=== PATIENT | female | born 1950 | race Caucasian/White ===

== ENCOUNTER 2019-02-22 17:11 | Inpatient (IN) | payer MEDICARE, OTHER ==
[2019-02-22] MEDS ORDERED: Acetaminophen 500 MG TAB ONE (17:44)
[2019-02-22 17:52] LABS: #Eosinphils 0.1 thou/uL (0.0-0.7); #Lymphocytes 0.7 thou/uL (1.20-3.40); #Monocytes 0.9 thou/uL (0.11-0.59); #Neutrophils 7.3 thou/uL (1.40-6.50); %Basophils 0.2 % (0.0-1.0); %Eosinophils 0.6 % (0.0-10.0); %Lymphocytes 7.8 % (21.0-51.0); %Monocytes 10.4 % (0.0-10.0); Hemoglobin 11.4 g/dL (12.0-16.0); Mean Corpuscular HGB CONC 31.9 g/dL (32.0-36.0); Mean Corpuscular Hemoglobin 25.8 pg (27.0-31.0); Mean Corpuscular Volume 80.7 fL (78.0-98.0); Mean Platelet Volume 7.5 fL (7.4-10.4); Platelet Count 249 thou/uL (130-400); RBC Distribution Width 17.5 % (11.5-14.5); Red Blood Cell (RBC) Count 4.43 mill/uL (4.20-5.40)
[2019-02-22 18:14] LABS: ALT (SGPT) 36 U/L (8-55); AST (SGOT) 143 U/L (5-34); Albumin 4.9 g/dL (3.4-4.8); Alkaline Phosphatase 77 U/L (40-110); Anion Gap 15 mmol/L (10-20); BUN (Urea Nitrogen) 6 mg/dL (9.8-20.1); CK (CPK) 1054 U/L (29-168); Calc. Creatinine Clearance 0 mL/min (70-130); Calcium 9.8 mg/dL (7.8-10.44); Carbon Dioxide 26 mmol/L (23-31); Chloride 106 mmol/L (98-107); Estimated GFR-MDRD 76; Globulin 2.4 g/dL (2.4-3.5); Glucose 137 mg/dL (80-115); Potassium 4.3 mmol/L (3.5-5.1); Protein, Total 7.3 g/dL (6.0-8.3); Sodium 143 mmol/L (136-145)
[2019-02-22 18:45] LABS: CKMB 70.5 ng/mL (0-6.6)
[2019-02-22] MEDS ORDERED: Enoxaparin Sodium 80 MG/0.8 ML SYRINGE ONE (19:24)
[2019-02-22] MEDS ORDERED: Nitroglycerin 2% Ointment 1 INCH/1 GM Packet ONE (19:24)
[2019-02-22] MEDS ORDERED: Aspirin 325 MG TAB ONE (19:24)
--- NOTE | 2019-02-22 19:33 | RAD ---
PORTABLE CHEST: Date: 02-22-19 Provided Clinical History: Fever. FINDINGS: Cardiac silhouette appears enlarged, which may be at least partially on the basis of portable techniq ue. Vascular calcification involves the aortic arch. No focal consolidation, pleural fluid, or pneumo thorax apparent. Retrocardiac density in the region of the diaphragmatic hiatus is presumably hiatal hernia. IMPRESSION: No evidence for an acute cardiopulmonary process. POS: KEIRA
[2019-02-22] MEDS ORDERED: Ibuprofen 200 MG TAB ONE (21:24)
[2019-02-22] MEDS ORDERED: Cefepime 2 GM VIAL ONE (22:04)
[2019-02-22 22:34] LABS: Troponin I 13.405 ng/mL (< 0.028)
[2019-02-22 22:39] LABS: Bilirubin Negative (Negative); Blood, Urine Negative (Negative); Clarity Clear (Clear); Glucose, Urine (Dipstick) Normal (Negative); Leukocyte Negative Leu/uL (Negative); Nitrite Negative (Negative); Protein, Urine (Dipstick) Negative (Neg-Trace); Urobilinogen Normal mg/dL (Less than 2)
[2019-02-22] MEDS ORDERED: Acetaminophen 325 MG TAB PO PRN (23:14)
[2019-02-22] MEDS ORDERED: Ondansetron ODT 4 MG TAB SL PRN (23:14)
[2019-02-22] MEDS ORDERED: Ondansetron PF 4 MG/2 ML Vial IVP PRN (23:14)
[2019-02-22 23:22] VITALS: BMI 27.3
[2019-02-23 01:31] LABS: Critical Call Chem Troponin I RESULT DECREASING; Troponin I 12.707 ng/mL (< 0.028)
[2019-02-23] MEDS ORDERED: Bisacodyl 5 MG TAB PO PRN (03:16)
[2019-02-23] MEDS ORDERED: Ondansetron PF 4 MG/2 ML Vial IVP PRN (03:16)
[2019-02-23] MEDS ORDERED: Acetaminophen 325 MG TAB PO PRN (03:16)
[2019-02-23] MEDS ORDERED: ERGOCALCIFEROL 5000 UNIT PO SCH (03:30)
--- NOTE | 2019-02-23 04:01 | HP ---
PRIMARY CARE PROVIDER: Dr. Annita Collier in [place], [place]. CHIEF COMPLAINT: Body aches. HISTORY OF PRESENT ILLNESS: Ms. Mccarthy is a pleasant 68-year-old lady, who was seen at [facility] on February 23, 2019. 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 About 9 months ago, the patient's mother moved from [place] to [facility]. The patient's sister lives in this area. Over the last 3 months, the patient's mother has been under hospice care. The patient and her usually drive here and stay Friday, Friday, and Friday in this area and drives back to [place]. They report being under lot of stress. Over the last 4 to 5 days, the patient has had body aches. She describes that the body aches initially started around the gum line, then neck, then both arms, all the way to fingertips. She also reports pain across shoulder blades. She also reports cough that is occasionally productive of whitish sputum. She reports having fever yesterday, but not until yesterday. She denies any urinary symptoms. She reports vomiting 4 times yesterday. She reports occasional shortness of breath. She denies any specific chest pain, but does report generalized body aches. In the emergency room, she was found to be febrile. She was also found to have elevated troponin-I. She has been referred to Hospitalist Service for admission. REVIEW OF SYSTEMS: All systems were reviewed and found to be negative except for the pertinent positives mentioned above. PAST MEDICAL HISTORY: Gastroesophageal reflux disease, rheumatoid arthritis, psoriatic arthritis, dyslipidemia, hypertension. PAST SURGICAL HISTORY: Cholecystectomy, section, and hysterectomy. PSYCHIATRIC HISTORY: Depression. SOCIAL HISTORY: The patient drinks a small amount of wine on a daily basis. She also has an Micronesian whiskey in the evening. She denies any tobacco use or recreational drug use. FAMILY HISTORY: Significant for several members with coronary artery disease. ALLERGIES: IODINE AND IODINE CONTAINING PRODUCTS. CURRENT MEDICATIONS: Atenolol 12.5 mg daily, clonazepam 0.5 mg 3 times a day, vitamin D2 at 5000 units daily, methotrexate 15 mg every week, omeprazole 40 mg daily, quetiapine 50 mg at bedtime, Zoloft 100 mg daily, Zocor 40 mg at bedtime. CODE STATUS: I discussed her code status. She is full code. PHYSICAL EXAMINATION: GENERAL: On examination, Ms. Mccarthy is awake and alert, not in acute distress. VITAL SIGNS: Blood pressure is 113/63, pulse 96, respiratory rate 18, and oxygen saturation 94% on room air. She is afebrile. In the emergency room, she had pulse as high as 105. T-max in the emergency room was 102.1. EYES: No scleral icterus, no conjunctival pallor. ENT: Moist mucosal membranes. No oropharyngeal erythema or exudates. NECK: Supple, nontender, trachea is midline. RESPIRATORY: Accessory muscles of breathing are not active. Chest wall movements are symmetric bilaterally. LUNGS: Clear to auscultation without wheeze, rhonchi, or crepitations. CARDIOVASCULAR: S1 and S2 are heard, regular. Peripheral pulses palpable. No carotid bruit. No pericardial rub. ABDOMEN: Soft, nontender, bowel sounds heard. NEUROLOGIC: Cranial nerves 2 through 12 intact, deep tendon reflexes 2+. MUSCULOSKELETAL: Power is 5/5 in all 4 extremities. SKIN: No rashes or subcutaneous nodules. LYMPHATIC: No cervical lymphadenopathy. PSYCHIATRIC: Normal mood, normal affect, the patient is oriented to person, place, and time. LABORATORY DATA: Ms. Mccarthy's labs and investigations were reviewed. I reviewed her electrocardiogram, which shows sinus tachycardia, no ST changes to suggest an acute coronary syndrome. She does have low-voltage QRS complexes. I also reviewed her chest x-ray, which does not show any pulmonary infiltrates. She has normal white count, normocytic anemia with hemoglobin 11.4, normal platelet count, D-dimer less than 0.27, normal electrolytes, normal creatinine, elevated AST of 143, normal ALT, normal alkaline phosphatase, normal total bilirubin, elevated CK level of 1054 and elevated troponin I of 12.707. Urinalysis is negative for nitrite and leukocyte esterase. ASSESSMENT AND PLAN: Ms. Mccarthy is a pleasant 68-year-old lady, who was seen at [facility] on February 23, 2019. Her problem list includes: 1. Sepsis: Ms. Mccarthy is presenting with sepsis, etiology unclear. Could be secondary to viral infections. The patient has been started on cefepime to cover bacterial infections, which I will continue for now. We will follow blood cultures. 2. Elevated troponin: Etiology is unclear. Differential diagnosis include [id number] myocardial infarction, type 1 or type 2 as well as cardiomyopathy secondary to viral etiologies. We will check 2D echocardiogram. We will continue to monitor on telemetry. Cardiology Service has been consulted by emergency room physician for opinion and help with management. The patient has received 1 mg/kg of Lovenox, which I will continue for now. We will also continue her on aspirin until it is clearer what we are dealing with. 3. Depression: Moderate, stable, continue Zoloft. 4. Dyslipidemia: Continue statin. 5. Hypertension: Resume atenolol, monitor vital signs and titrate antihypertensives as needed. 6. Gastroesophageal reflux disease: Stable, continue PPI. Many thanks for allowing me to participate in your patient's care. Please feel free to contact me with any questions or concerns. LEVEL OF RISK: High. LEVEL OF COMPLEXITY: High. Job ID: [id number]
[2019-02-23 06:11] LABS: #Lymphocytes 1.1 thou/uL (1.20-3.40); #Monocytes 0.7 thou/uL (0.11-0.59); #Neutrophils 3.9 thou/uL (1.40-6.50); %Basophils 0.2 % (0.0-1.0); %Eosinophils 0.8 % (0.0-10.0); %Monocytes 12.7 % (0.0-10.0); %Neutrophils 67.4 % (42.0-75.0); Hemoglobin 9.6 g/dL (12.0-16.0); Mean Corpuscular HGB CONC 32.3 g/dL (32.0-36.0); Mean Corpuscular Hemoglobin 26.3 pg (27.0-31.0); Mean Corpuscular Volume 81.3 fL (78.0-98.0); Mean Platelet Volume 7.6 fL (7.4-10.4); Platelet Count 204 thou/uL (130-400); RBC Distribution Width 17.5 % (11.5-14.5); Red Blood Cell (RBC) Count 3.64 mill/uL (4.20-5.40); White Blood Cell (WBC) Count 5.7 thou/uL (4.8-10.8)
[2019-02-23 06:32] LABS: Anion Gap 10 mmol/L (10-20); BUN (Urea Nitrogen) 8 mg/dL (9.8-20.1); CK (CPK) 520 U/L (29-168); Calc. Creatinine Clearance 90 mL/min (70-130); Carbon Dioxide 26 mmol/L (23-31); Chloride 107 mmol/L (98-107); Estimated GFR-MDRD 88; Glucose 114 mg/dL (80-115); Potassium 3.6 mmol/L (3.5-5.1); Sodium 139 mmol/L (136-145)
[2019-02-23] MEDS: Enoxaparin Sodium 80 MG/0.8 ML SYRINGE SC SCH ×2 (08:38→20:40)
[2019-02-23] MEDS: Aspirin 325 mg Enteric Coated Tablet PO SCH (08:46)
[2019-02-23] MEDS ORDERED: Prevnar 13-Val Conj/PF 0.5 ML SYRINGE IM ONE (09:00)
[2019-02-23] MEDS ORDERED: Methotrexate Sodium 2.5 MG TAB PO SCH (09:00)
[2019-02-23] MEDS ORDERED: Atenolol 25 MG TAB PO SCH (09:00)
[2019-02-23] MEDS ORDERED: Communication Order-Pharmacy FS SCH (09:45)
[2019-02-23] MEDS ORDERED: diphenhydrAMINE 25 MG CAP PO SCH (10:00)
[2019-02-23] MEDS ORDERED: Famotidine 20 MG TAB PO SCH (10:00)
[2019-02-23] MEDS: Cefepime 1 GM in Sodium Chloride 0.9% 100 ML IVPB SCH ×2 (11:18→23:55)
[2019-02-23] MEDS ORDERED: HYDROcodone/Acetaminophen 5/325 mg Tablet PO PRN (12:00)
[2019-02-23] MEDS: clonazePAM 0.5 MG TAB PO PRN (12:37)
[2019-02-23] MEDS: Nitroglycerin 0.4 MG TAB (25 Tab Bottle) SL PRN ×2 (15:25→15:48)
[2019-02-23] MEDS: Morphine 2 MG/ML SYRINGE SLOW IVP PRN ×2 (15:25→16:07)
[2019-02-23] MEDS: diphenhydrAMINE 25 MG CAP PO SCH ×2 (15:36→20:39)
[2019-02-23] MEDS: Famotidine 20 MG TAB PO SCH ×2 (15:36→20:39)
[2019-02-23] MEDS: predniSONE 20 MG TAB PO SCH ×2 (15:36→20:39)
[2019-02-23] MEDS ORDERED: Nitroglycerin 2% Ointment 1 INCH/1 GM Packet TOP SCH (16:00)
--- NOTE | 2019-02-23 16:24 | CON ---
DATE OF CONSULTATION: HISTORY OF PRESENT ILLNESS: The patient is a pleasant 68-year-old woman, who presents for evaluation of chest discomfort. The patient has a previous history of hypertension and dyslipidemia. The patient was visiting a family member when she started feeling weak and had chest and back discomfort. This continued for several days and she eventually came to the emergency room. The patient was treated and her chest discomfort resolved. The patient reports feeling weak for the past several days. PAST MEDICAL HISTORY: 1. Hypertension. 2. Dyslipidemia. 3. Rheumatoid arthritis. 4. Psoriatic arthritis. PAST SURGICAL HISTORY: Cholecystectomy and . MEDICATIONS: 1. Zocor 40 at bedtime. 2. Atenolol 12.5 daily. 3. Prilosec 40 daily. 4. Seroquel 50 daily. 5. Zoloft 100 daily. ALLERGIES: IODINE. FAMILY HISTORY: Positive family history of coronary artery disease. REVIEW OF SYSTEMS: Ten-point system otherwise unremarkable. No history of easy bruising or bleeding. PHYSICAL EXAMINATION: GENERAL: Obese woman, in no acute distress. VITAL SIGNS: Blood pressure 120/73. NECK: No jugular venous distention. LUNGS: Clear to auscultation. HEART: Regular rate and rhythm. Normal S1 and S2. No murmurs. ABDOMEN: Nondistended. EXTREMITIES: Show no edema. VASCULAR: Radial pulses are 2+. LABORATORY DATA: White blood cell count 5.7, hemoglobin 9.6, hematocrit 29.6, and her platelets are 204. Her sodium 139, potassium 3.6, chloride 107, bicarb 26, BUN 8, creatinine 0.67. CPK-MB was 70.5. Her troponin was 12.7. Her EKG revealed normal sinus rhythm with low voltage QRS. IMPRESSION: 1. Non-Q-wave myocardial infarction. 2. Hypertension. 3. Dyslipidemia. 4. Rheumatoid arthritis. 5. Anemia. This patient presents with a non-Q-wave myocardial infarction. The patient's EKG is unremarkable. The patient has markedly elevated cardiac enzymes. I would recommend proceeding with cardiac catheterization. The patient has an iodine allergy. We will proceed with this after the patient is premedicated. We will follow this patient with you through her hospitalization. Job ID: [id number] [facility]
[2019-02-23] MEDS: Metoprolol Tartrate 25 MG TAB PO SCH (20:40)
[2019-02-23] MEDS ORDERED: Atorvastatin Calcium 40 MG TAB PO SCH (21:00)
[2019-02-23] MEDS ORDERED: Simvastatin 40 MG TAB PO SCH (21:00)
[2019-02-24] MEDS: diphenhydrAMINE 25 MG CAP PO SCH (05:08)
[2019-02-24] MEDS: Famotidine 20 MG TAB PO SCH (05:08)
[2019-02-24] MEDS: predniSONE 20 MG TAB PO SCH (05:08)
[2019-02-24] MEDS: Metoprolol Tartrate 25 MG TAB PO SCH (05:09)
[2019-02-24] MEDS: Aspirin 325 mg Enteric Coated Tablet PO SCH (05:09)
[2019-02-24] MEDS: clonazePAM 0.5 MG TAB PO PRN (05:09)
[2019-02-24 05:26] LABS: #Lymphocytes 0.7 thou/uL (1.20-3.40); #Monocytes 0.8 thou/uL (0.11-0.59); #Neutrophils 7.7 thou/uL (1.40-6.50); %Eosinophils 0.1 % (0.0-10.0); %Lymphocytes 7.7 % (21.0-51.0); %Monocytes 8.3 % (0.0-10.0); %Neutrophils 83.9 % (42.0-75.0); Hemoglobin 10.1 g/dL (12.0-16.0); Mean Corpuscular HGB CONC 31.8 g/dL (32.0-36.0); Mean Corpuscular Volume 81.9 fL (78.0-98.0); Mean Platelet Volume 7.8 fL (7.4-10.4); Platelet Count 226 thou/uL (130-400); RBC Distribution Width 17.3 % (11.5-14.5); Red Blood Cell (RBC) Count 3.86 mill/uL (4.20-5.40); White Blood Cell (WBC) Count 9.2 thou/uL (4.8-10.8)
[2019-02-24 05:48] LABS: Anion Gap 13 mmol/L (10-20); BUN (Urea Nitrogen) 7 mg/dL (9.8-20.1); Calc. Creatinine Clearance 90 mL/min (70-130); Calcium 9.2 mg/dL (7.8-10.44); Carbon Dioxide 20 mmol/L (23-31); Cardiac Risk 3.2 (Less than 4.5); Chloride 107 mmol/L (98-107); Cholesterol 226 mg/dl (< 200 Desired); Estimated GFR-MDRD 88; Glucose 134 mg/dL (80-115); HDL Cholesterol 70 mg/dL (>60 Neg Risk); LDL Cholesterol, Calculated 137 mg/dL; Potassium 3.9 mmol/L (3.5-5.1); Sodium 136 mmol/L (136-145); Triglycerides 95 mg/dL (Less than 150)
[2019-02-24] MEDS ORDERED: diphenhydrAMINE 25 MG CAP PO SCH (06:00)
[2019-02-24] MEDS ORDERED: predniSONE 20 MG TAB PO SCH (06:00)
[2019-02-24 07:19] VITALS: BP 119/71; TEMP 99.5
--- NOTE | 2019-02-25 03:16 | DIS ---
DATE OF ADMISSION: 02/22/2019 DATE OF DISCHARGE: 02/24/2019 REASON FOR HOSPITALIZATION: Non ST-elevation myocardial infarction. SIGNIFICANT FINDINGS: The patient was found to have non ST-elevation myocardial infarction and subsequently from complications of myocardial infarction. PROCEDURES PERFORMED AND TREATMENTS RENDERED: The patient was admitted to medical unit with telemetry. The patient was evaluated by Cardiology, please see full consultation and progress notes for details. The patient was diagnosed with non ST-elevation myocardial infarction and was started on appropriate medical management. The patient was planned for cardiac catheterization, unfortunately she prior to undergoing cardiac catheterization on 02/24/2019. CONDITION ON DISCHARGE: Stable. SPECIFIC INSTRUCTIONS FOR THE FAMILY: The patient transferred to home of family selecting for all further arrangements of burial. HOME MEDICATIONS: 1. Vitamin D. 2. Clonazepam 0.5 mg one tablet p.o. t.i.d. p.r.n. 3. Sertraline 100 mg one tablet p.o. daily. 4. Quetiapine 50 mg one tablet p.o. at bedtime. 5. Omeprazole 40 mg one tablet p.o. daily. 6. Atenolol 12.5 mg one tablet p.o. daily. 7. Simvastatin 40 mg one tablet p.o. at bedtime. 8. Methotrexate 15 mg p.o. every seven days. HOSPITAL COURSE: Ms. Mccarthy is a pleasant 68-year-old female with past medical history of hypertension, hyperlipidemia, mood disorder, and rheumatologic disease, who is on chronic immunosuppressive therapy, who presented to [facility] on 02/22/2019, please see full notes from Emergency Department physician, admitting H and P, and Cardiology for full details. The patient was diagnosed with NSTEMI by Cardiology, was placed on appropriate medications and there was a plan for cardiac catheterization. The patient does have a contrast allergy and therefore, the patient could not undergo urgent cardiac catheterization as she had severe allergic response in the past to IV contrast including respiratory failure. The patient was appropriately placed on medications to allow her to receive contrast including steroid medications and Benadryl. The patient had an echocardiogram, please see full report for details. Echocardiogram demonstrating a preserved ejection fraction of 55% with an overly normal structural anatomy at the time it was completed and there is only mention of a small pericardial effusion without any tamponade physiology. This report was from 02/23/2019 at 2:02 p.m. The patient was found to have significantly elevated cardiac enzymes. However, her cardiac enzymes were not uptrending and in fact, they were downtrending and stabilizing in the 12-13 range. Cardiology recommending that the patient may have had myocardial infarction several days ago based off this pattern. The patient had no significant abnormalities on EKG that were concerning at the time per mold stacker. Unfortunately without warning on the morning of 02/24/2019, the patient's blood pressure dropped, and she suffered a cardiopulmonary arrest. I evaluated the patient prior to this and her only complaint was a mild sore throat. I discussed with the patient, deferred possibilities of what to expect with cardiac catheterization and mold stacker had been by and was planning for cardiac catheterization this morning. The patient with cardiac arrest, was fortunate enough to have her mold stacker on the floor who help to run the code. Emergency Department physicians rushed to the patient's side and quickly coordinated CPR including intubation, resuscitation, and maximum medical efforts. Despite 40 minutes roughly of CPR, the patient could not be successfully resuscitated. I was at bedside and talking with the patient's throughout this process and aiding as able. A stat echocardiogram was done at bedside and interpreted by the mold stacker as a rupture of the myocardium, which caused blood pooling into the pericardial space. A stat pericardiocentesis was attempted by Cardiology/Emergency Department physicians and despite this effort with appropriately sized needle, no adequate blood could be returned. The patient from cardiopulmonary arrest secondary to rupture of myocardium resulting in pericardial tamponade physiology and cardiac arrest. In reviewing this patient's chart in its entirety, there is no interventions that could have been done differently to help avoid this complication. As I previously stated, we had an echocardiogram from less than 24 hours prior that showed only very small pericardial effusion and an intact ejection fraction. There was no anatomical inclination that the patient's myocardium was weakened or that it was at risk to rupture. All of these findings were discussed with the patient's family at bedside by mold stacker and myself. The patient's family was met by a local checker loader for spiritual guidance. The patient's body was transferred to mortuary of the family's choosing. Greater than 55 minutes spent coordinating care and discharge process for this patient. Job ID: [id number]
--- NOTE | 2019-02-25 08:19 | PRG ---
DATE OF SERVICE: 02/24/2019 CODE NOTE: PRIMARY CARE PHYSICIAN: Dr. Vazquez. The patient is a 68-year-old woman, who developed acute onset of bradycardia and went into cardiac arrest. A code blue/green was called. The patient was attempted to be resuscitated with epinephrine, atropine, and bicarbonate. The patient's code started at 8:47. She was intubated at 8:53. The patient received 7 rounds of epinephrine, 2 bicarb, 2 atropine, and calcium carbonate. The patient underwent an emergent ultrasound, which revealed a large pericardial effusion. The patient underwent attempted pericardiocentesis x2. The patient's code was called at 9: 13 at the time of . Job ID: [id number] [facility]
--- NOTE | 2019-02-25 22:06 | PQF ---
Please forward this query to the attending physician on the day of (Dr. Tafoya) SAP Panel Machine Setter Crystal Reports Winform ViewerSLAJANN,ATLYA ALCOCER [id number] CLINICAL DOCUMENTATION CLARIFICATION FORM: POST DISCHARGE Addendum to original discharge summary date: ____ Late entry note date: __ DATE: 02/25/2019 ATTN: TALYA VAZQUEZ Please exercise your independent, professional judgment in responding to the clarification form. Clinical indicators are provided on the bottom of this form for your review Please check appropriate box(s) to clarify if the following diagnosis has been ruled in or ruled out: SEPSIS [ ] Ruled in diagnosis [ ] Continue to treat [ ] Resolved [ ] Ruled out diagnosis [ ] Cannot rule out diagnosis [ ] Other diagnosis [ ] Unable to determine For continuity of documentation, please document condition throughout progress notes and discharge summary. Thank You. CLINICAL INDICATORS - SIGNS / SYMPTOMS / LABS - Sepsis-etiology unclear, could be sec to viral infections-H&P, 02/22, George Garcia MD - Fever-ED record, Arnold Hull MD - Pulse:105, RR:19, Temp:102.1--ED record, Arnold Hull MD - WBC: 5.7-[id number]/01 RISK FACTORS -NSTEMI-DS, 02/24, Michelet Meyers DO TREATMENTS -Started Cefepime-H&P, 02/22, Talya Vazquez MD (This form is maintained as a part of the permanent medical record) 2014 [employer]. All Rights Reserved Erica Hilton [not provided] [not provided] MTDD
--- NOTE | 2019-02-27 12:38 | EKG ---
Test Reason : Blood Pressure : / mmHG Vent. Rate : 102 BPM Atrial Rate : 102 BPM P-R Int : 158 ms QRS Dur : 074 ms QT Int : 376 ms P-R-T Axes : 035 024 030 degrees QTc Int : 490 ms Sinus tachycardia Low voltage QRS Possible ST depression Borderline ECG Confirmed by MADY GEORGE M.D. ([id number]), photograph editor TRISTIN HERNANDEZ ([id number]) on 02/27/2019 12:38:15 PM Referred By: Confirmed By:MADY GEORGE M.D.
== END 2019-02-24 09:13 | disposition expired ==
LOC: ERS 17:11 → 2NO 20:52
PROVIDERS: ADMIT Family Medicine; ATTEND Family Medicine
PROC: 5A12012 Performance of Cardiac Output, Single, Manual (ICD-10-PCS; principal; 2019-02-22)
PROC: 0W9D3ZZ Drainage of Pericardial Cavity, Percutaneous Approach (ICD-10-PCS; 2019-02-23)
PROC: 0BH17EZ Insertion of Endotracheal Airway into Trachea, Via Natural or Artificial Opening (ICD-10-PCS; 2019-02-23)
DX: I21.4 Non-ST elevation (NSTEMI) myocardial infarction (principal); I31.4 Cardiac tamponade; I31.3 Pericardial effusion (noninflammatory); M06.9 Rheumatoid arthritis, unspecified; K21.9 Gastro-esophageal reflux disease without esophagitis; E78.5 Hyperlipidemia, unspecified; E78.00 Pure hypercholesterolemia, unspecified; I10 Essential (primary) hypertension; F32.9 Major depressive disorder, single episode, unspecified; J02.9 Acute pharyngitis, unspecified; E66.9 Obesity, unspecified; L40.50 Arthropathic psoriasis, unspecified; D64.9 Anemia, unspecified; I46.2 Cardiac arrest due to underlying cardiac condition; Z90.49 Acquired absence of other specified parts of digestive tract; Z90.710 Acquired absence of both cervix and uterus; Z68.27 Body mass index [BMI] 27.0-27.9, adult; Z91.041 Radiographic dye allergy status; Z79.899 Other long term (current) drug therapy; Z82.49 Family history of ischemic heart disease and other diseases of the circulatory system
CPT/HCPCS: 36415; 36416; 71045; 80048; 80053; 80061; 81003; 82550; 82553; 83880; 84484; 85025; 85379; 87040; 87086; 87804; 90471; 90670; 93005; 93306; 94760; 96365; 96372; G0009; J0692; J1650; J2270; J3490; J7512; Q0163